=== PATIENT | female | born 2000 | race Caucasian/White ===

== ENCOUNTER → 2020-01-14 13:59 | Outpatient (BNVA) | payer MEDICAID, SELFPAY | PROVIDERS: PCP Nurse Practitioner Family; Referring Provider Nurse Practitioner Family; Visit Provider Obstetrics & Gynecology | DX: Z76.89 Persons encountering health services in other specified circumstances (principal) ==

== ENCOUNTER 2020-01-28 10:56 | Outpatient (REF) | payer MEDICAID, SELFPAY ==
--- NOTE | 2020-01-28 11:01 | US_ITS ---
EXAMINATION: US OBSTETRICAL CLINICAL INFORMATION: 20-year-old at 20.4 weeks of gestation Suspected anomaly COMPARISON: 10/15/2019 TECHNIQUE: Real-time transabdominal ultrasound was performed using C1-5 megahertz transducer. FINDINGS: A single, active, fetus is seen in vertex presentation. The placenta is anterior without previa, and the amniotic fluid volume is wnl. MEASUREMENTS: 1. Biparietal Diameter: 7.43 cm; 29.6 wks 2. Occipital Frontal Diameter: 9.94 cm 3. Head Circumference: 27.8 cm; 30.4 wks 4. Abdominal Circumference: 24.7 cm; 29.0 wks 5. Femur Length: 5.5 cm; 29.0 wks 6. Humerus Length: 5.1 cm; 30.0 wks 7. Tibia Length: 5.0 cm; 30.0 wks 8. Ulna Length: 4.6 cm; 29.4 wks 9. Lateral ventricle: 0.92 cm 10. Cerebellum: 3.18 cm; 29.3 wks 11. Cisterna Magna: 0.64 cm 12. Nuchal Fold: N/A mm 13. Heart Rate: 156 beats per minute Rt ovary: normal Lt ovary: Unable to visualize Cervical length 3.7 cm on T/A. GESTATIONAL AGE: 1. Established GA: 28.4 wks 2. GA from [facility]: 29.5 wks ESTIMATED DATE OF DELIVERY: 1. Established JULIÁN: 04/17/2020 2. JULIÁN from [facility]: 04/09/2020 ANATOMY: The visualized anatomy includes but not limited to: 1. Cranium: Normal 2. Intracranial anatomy: cavum septum pellucidi, lateral ventricles, choroid plexus, cerebellum, posterior fossa, third and fourth ventricles. 3. face: orbits, lip/palate, profile, nasal bone 4. Heart: four-chamber view of the heart, ventricular septum, foramen ovale, pulmonary vein, left and right outflow tracts, three-vessel view, 3 vessel trachea view, aortic and ductal arches, situs.. 5. Diaphragm: Normal 6. Abdominal wall: Normal 7. Cord Insertion: Normal 8. Spine: Cervical, thoracic, lumbar, sacral. 9. Stomach: Normal size and shape 10. Right Kidney: Normal 11. Left Kidney: The renal pelvis measured 0.8 cm consistent with the pyelectasis. Ureter is not visible. 12. 3 vessel cord: Normal 13. Upper extremity: Open hands, fifth digit. 14. Lower extremity: Tibia, fibula, bilateral feet. 15. Bladder: Normal 16. Genitalia: Female, patient aware US/US OB /maternal detail IMPRESSION: 1. Single, living, intrauterine with appropriate biometry. 2. Left pyelectasis without hydroureter, suggestive of UPJ reflux. DISCUSSION: I reviewed today's ultrasound findings. We discussed the limitations of ultrasound in diagnosing aneuploidy and other congenital abnormalities. I reviewed the differences between screening test and diagnostic test. She had the low risk and IPT but did not return for survey at the approximately 19 weeks of gestation. Denies any complications to date. I reviewed the approximate prognosis and management of pyelectasis. Have informed her that this is a benign condition that will most likely resolve spontaneously. She was informed that the baseline incidence of congenital abnormalities is approximately 3-5%. Not all these conditions are diagnosable in utero. RECOMMENDATIONS: 1. Follow-up in 4-5 weeks. (Scheduled) Thank you for allowing me to participate in her care. Visiting time 25 minutes. Majority of this visit was spent reviewing and discussing her care.
== END 2020-01-28 10:57 | disposition home or self-care (01) ==
LOC: HO.US 10:56
PROVIDERS: PCP Nurse Practitioner Family; Visit Provider Obstetrics & Gynecology
DX: Z36.3 Encounter for antenatal screening for malformations (principal); Z34.03 Encounter for supervision of normal first pregnancy, third trimester
CPT/HCPCS: 76811

== ENCOUNTER 2020-02-02 11:55 | Outpatient (REF) | payer MEDICAID, SELFPAY ==
[2020-02-02 16:30] LABS: Glucose 1 Hour 97 mg/dL
== END 2020-02-02 11:56 | disposition home or self-care (01) ==
LOC: HO.LAB 11:55
PROVIDERS: Absent Provider Obstetrics & Gynecology; Visit Provider Advanced Practice Midwife
DX: Z34.03 Encounter for supervision of normal first pregnancy, third trimester (principal)
CPT/HCPCS: 82951

== ENCOUNTER → 2020-02-16 12:37 | Outpatient (BNVA) | payer MEDICAID, BC, SELFPAY | PROVIDERS: Visit Provider Advanced Practice Midwife | DX: Z76.89 Persons encountering health services in other specified circumstances (principal) ==